=== PATIENT | female | born 1960 | race Caucasian/White ===

== ENCOUNTER 2020-06-09 08:52 | Outpatient (CLI) | payer OTHER, SELFPAY ==
--- NOTE | ~2020-06-09 | MM_ITS ---
EXAMINATION: MM screening [facility] BI w danielito HISTORY: Screening mammogram TECHNIQUE: Craniocaudal and mediolateral oblique 3-D tomosynthesis images were obtained and synthetic 2-D images were generated. CAD analysis was submitted and interpreted. COMPARISON: 04/24/2019, 04/10/2018, 04/09/2017 BREAST PARENCHYMAL COMPOSITION: There are scattered areas of fibroglandular density. FINDINGS: There is no evidence of suspicious mass, calcification, or architectural distortion to sugg est malignancy in either breast. There has been no suspicious interval change. IMPRESSION: 1. No mammographic evidence of malignancy. 2. Recommend routine screening mammography in one year. BI-RADS Category 1: Negative Reviewed, dictated and finalized at location A.
== END 2020-06-09 08:53 | disposition home or self-care (01) ==
PROVIDERS: PCP Student in an Organized Health Care Education/Training Program; Visit Provider Student in an Organized Health Care Education/Training Program
DX: Z12.31 Encounter for screening mammogram for malignant neoplasm of breast (principal)
CPT/HCPCS: 77063; 77067

== ENCOUNTER 2020-09-27 10:32 | Outpatient (CLI) | payer OTHER, SELFPAY ==
--- NOTE | ~2020-09-27 | DEXA_ITS ---
Bone Density Report Name: Joan Correa Age: 60 Sex: Female Ethnicity: White Date of : 1960 Indication: osteopenia; parental hip fracture; Referring Provider: SHIRAZ, PAVEL Study: Bone densitometry was performed. Exam Date: September 27, 2020 Accession number: [id number] Bone Density: Region BMD T-score Z-score Classification AP Spine (L1-L4) 0.799 -2.3 -0.7 Osteopenia Femoral Neck (Left) 0.591 -2.3 -0.9 Osteopenia Total Hip (Left) 0.762 -1.5 -0.4 Osteopenia Total Hip Bilateral Avg 0.764 -1.5 -0.4 Osteopenia Femoral Neck (Right) 0.588 -2.4 -1.0 Osteopenia Total Hip (Right) 0.765 -1.4 -0.4 Osteopenia World Health Organization criteria for BMD impression classify patients as: Normal (T-score at or above -1.0), Osteopenia (T-score between -1.0 and -2.5), or Osteoporosis (T-score at or below -2.5). 10-year Fracture Risk(1): Major Osteoporotic Fracture 21% Hip Fracture 2.1% Reported Risk Factors: [place] (), Neck BMD=0.588, BMI=24.4, parental fracture (1) FRAX(R) Version 3.08. Fracture probability calculated for an untreated patient. Fracture probability may be lower if the patient has received treatment. Previous Exams: Region Exam Age BMD T-score BMD Change BMD Change Date g/cm2 vs Baseline vs Previous AP Spine(L1-L4) 09/27/2020 60 0.799 -2.3 -0.120(-13.1%) -0.120(-13.1%) 04/12/2011 50 0.919 -1.2 Total Hip(Left) 09/27/2020 60 0.762 -1.5 -0.072(-8.7%)# -0.072(-8.7%)# 04/12/2011 50 0.834 -0.9 Total Hip(Right) 09/27/2020 60 0.765 -1.4 -0.063(-7.6%)# -0.063(-7.6%)# 04/12/2011 50 0.828 -0.9 *Denotes significance at 95% confidence level, LSC for AP Spine = 0.022 g/cm2, LSC for Total Hip = 0.027 g/cm2 Clinical Information Provided by Patient: Parent has had a hip fracture Has used the following medications: Vitamin D Patient maximum height was 69 Menopause Age: 48 No regular weight bearing exercise Drinks caffeinated beverages Onset of menses at age 10 Number of children 2 Impression: The patient has low bone mass, based on the Right Femoral Neck T-score. The patient has an estimated ten-year risk of hip fracture of 2.1% and an estimated ten-year risk of major fracture of 21%, based on the WHO FRAX algorithm. The patient has risk factors, including: parental hip fracture. No significant bone loss was observed. Discussion: BONE DENSITY IS LOW AT ONE OR MORE SKELETAL SITES. THE PATIENT'S BMD AND CLINI
== END 2020-09-27 10:33 | disposition home or self-care (01) ==
LOC: ANHIMG 10:35
PROVIDERS: PCP Student in an Organized Health Care Education/Training Program; Visit Provider Nurse Practitioner
DX: Z13.820 Encounter for screening for osteoporosis (principal); Z78.0 Asymptomatic menopausal state; M85.88 Other specified disorders of bone density and structure, other site; M85.852 Other specified disorders of bone density and structure, left thigh; M85.851 Other specified disorders of bone density and structure, right thigh
CPT/HCPCS: 77080

== ENCOUNTER 2021-07-01 07:49 | Outpatient (CLI) | payer OTHER, SELFPAY ==
--- NOTE | ~2021-07-01 | MM_ITS ---
EXAMINATION: MM screening [facility] BI w danielito HISTORY: Screening TECHNIQUE: Craniocaudal and mediolateral oblique 3-D tomosynthesis images were obtained and synthetic 2-D images were generated. CAD analysis was submitted and interpreted. COMPARISON: Comparison to multiple prior studies sequentially, with oldest reviewed study dated 04/09. BREAST PARENCHYMAL COMPOSITION: There are scattered areas of fibroglandular density. FINDINGS: There is no evidence of suspicious mass, calcification, or architectural distortion to sugg est malignancy in either breast. There has been no suspicious interval change. IMPRESSION: 1. No mammographic evidence of malignancy. 2. Recommend routine screening mammography in one year. BI-RADS Category 1: Negative Reviewed, dictated and finalized at location A.
== END 2021-07-01 07:50 | disposition home or self-care (01) ==
LOC: ANHIMG 07:53
PROVIDERS: PCP Student in an Organized Health Care Education/Training Program; Visit Provider Nurse Practitioner
DX: Z12.31 Encounter for screening mammogram for malignant neoplasm of breast (principal)
CPT/HCPCS: 77063; 77067

== ENCOUNTER 2022-07-08 08:58 | Outpatient (CLI) | payer OTHER, SELFPAY ==
--- NOTE | ~2022-07-08 | MM_ITS ---
EXAMINATION: MM screening [facility] BI w danielito HISTORY: Screening mammogram TECHNIQUE: Craniocaudal and mediolateral oblique 3-D tomosynthesis images were obtained and synthetic 2-D images were generated. CAD analysis was submitted and interpreted. COMPARISON: 07/01/2021, 06/09/2020, 04/24/2019 BREAST PARENCHYMAL COMPOSITION: The breasts are heterogeneously dense, which may obscure small masses . FINDINGS: There is no suspicious mass, calcification, or architectural distortion to suggest malignan cy in either breast. There has been no suspicious interval change. IMPRESSION: 1. No mammographic evidence of malignancy. 2. Recommend routine screening mammography in one year. BI-RADS Category 1: Negative Reviewed, dictated and finalized at location A.
== END 2022-07-08 08:59 | disposition home or self-care (01) ==
PROVIDERS: PCP Student in an Organized Health Care Education/Training Program; Visit Provider Nurse Practitioner
DX: Z12.31 Encounter for screening mammogram for malignant neoplasm of breast (principal)
CPT/HCPCS: 77063; 77067

== ENCOUNTER 2022-09-27 10:10 | Outpatient (CLI) | payer OTHER, SELFPAY ==
--- NOTE | ~2022-09-27 | DEXA_ITS ---
Bone Density Report Name: ADA JIM Age: 62 Sex: Female Ethnicity: White Date of : 1960 Indication: postmenopausal; screening for osteoporosis; Referring Provider: SHIRAZ, PAVEL Study: Bone densitometry was performed. Exam Date: September 27, 2022 Accession number: [id number] Bone Density: Region BMD T-score Z-score Classification AP Spine(L1-L4) 0.781 -2.4 -0.7 Osteopenia Femoral Neck (Left) 0.610 -2.2 -0.7 Osteopenia Total Hip (Left) 0.754 -1.5 -0.4 Osteopenia Femoral Neck (Right) 0.613 -2.1 -0.7 Osteopenia Total Hip (Right) 0.764 -1.5 -0.3 Osteopenia Total Hip Mean 0.759 -1.5 -0.4 Osteopenia World Health Organization criteria for BMD impression classify patients as: Normal (T-score at or above -1.0), Osteopenia (T-score between -1.0 and -2.5), or Osteoporosis (T-score at or below -2.5). 10-year Fracture Risk(1): Major Osteoporotic Fracture 10% Hip Fracture 1.7% Reported Risk Factors: [place] (), Neck BMD=0.610, BMI=22.5 (1) FRAX(R) Version 3.08. Fracture probability calculated for an untreated patient. Fracture probability may be lower if the patient has received treatment. Clinical Information Provided by Patient: Has used the following medications: Vitamin D Patient maximum height was 69 Menopause Age: 48 No regular weight bearing exercise Drinks caffeinated beverages Onset of menses at age 10 Number of children 2 Impression: The patient has low bone mass, based on the Total Spine T-score. The patient has an estimated ten-year risk of hip fracture of 1.7% and an estimated ten-year risk of major fracture of 10%, based on the WHO FRAX algorithm. Discussion: BONE DENSITY IS LOW AT ONE OR MORE SKELETAL SITES. This patient's lowest T-score is low at one or more skeletal sites. It meets the World Health Organization's (WHO) criteria for ?low bone mass? (T-score between -1.0 and -2.5). The patient's 10-year risk of fracture as calculated by FRAX is less than the threshold where pharmacological therapy is recommended by the National Osteoporosis Foundation (NOF). However, all treatment decisions require clinical judgment and consideration of individual patient factors, including patient preferences, comorbidities, previous drug use, risk factors not captured in the FRAX model (e.g., frailty, falls, vitamin D deficiency, increased bone turnover, interval significant decline in bone density) and possible under or overestimation of fracture risk by FRAX. The patient should follow a healthful lifestyle (good nutrition with adequate calcium and vitamin D, and appropriate weight-bearing exercise). Follow-Up: Consider repeating this study in 2 to 3 years to reassess this patient's status, or sooner if there is some new clinical indication. Reported by: Fernando
== END 2022-09-27 10:11 | disposition home or self-care (01) ==
LOC: ANHIMG 10:13
PROVIDERS: PCP Student in an Organized Health Care Education/Training Program; Visit Provider Nurse Practitioner
DX: M85.88 Other specified disorders of bone density and structure, other site (principal); Z78.0 Asymptomatic menopausal state; M85.852 Other specified disorders of bone density and structure, left thigh; M85.851 Other specified disorders of bone density and structure, right thigh
CPT/HCPCS: 77080

== ENCOUNTER 2023-10-07 10:42 | Emergency (ER) | payer MEDICARE, SELFPAY ==
[2023-10-07 10:55] VITALS: BP 113/77; PULSE 81; RESP 16; TEMP 37.4; O2SAT 100
[2023-10-07 10:59] VITALS: BP 113/77; PULSE 81; RESP 16; TEMP 37.4; O2SAT 100
--- NOTE | 2023-10-07 11:54 | ED.SKABFB ---
HPI - Skin/Abscess/Foreign Bdy General Chief complaint: Skin/Abscess/Foreign Body Stated complaint: Rash Time Seen by Provider: 10/07/23 11:48 Source: patient and RN notes reviewed Mode of arrival: ambulatory Limitations: no limitations History of Present Illness HPI narrative: Patient presents today complaining of a small rash just above her left eyebrow that has been present since last night and causes a burning pain. Believe she may have shingles. Currently rates her pain 2/10. She has not tried any [id number] medication for symptoms prior to arrival. She has been vaccinated for shingles. No vision changes at this time. She does have an eye doctor. Related Data Home Medications Medication Instructions Recorded Confirmed ergocalciferol (vitamin D2) 1,250 10/07/23 mcg (50,000 unit) capsule famotidine 20 mg tablet mg 10/07/23 fluticasone propionate 50 1 spray intranasal DAILY 10/07/23 10/07/23 mcg/actuation nasal spray,suspension ibandronate 150 mg tablet mg PO 10/07/23 ibuprofen 200 mg tablet 200 mg PO Q6H 10/07/23 10/07/23 losartan 50 mg tablet mg 10/07/23 Allergies Allergy/AdvReac Type Severity Reaction Status Date / Time No Known Allergies Allergy Verified 10/07/23 10:57 Review of Systems Review of Systems: CONSTITUTIONAL: Denies body aches, fever, chills, or sweats. EYES: Denies visual changes, redness, or discharge. ENT: Denies rhinorrhea, congestion, sore throat, or otalgia. CARDIOVASCULAR: Denies chest pain, palpitations, or edema. RESPIRATORY: Denies cough or dyspnea. GASTROINTESTINAL: Denies abdominal pain, nausea, vomiting, or diarrhea. GENITOURINARY: Denies dysuria or hematuria. SKIN: + rash MUSCULOSKELETAL: Denies back pain, joint pain, or myalgia. NEUROLOGIC: Denies headache, numbness, tingling, or weakness. PSYCH: Denies depression or anxiety. PMFSH Comments At time of signature, I have reviewed and agree with nursing past medical, surgical, social and family history unless otherwise noted. Please see nursing chart for further information. There is no relevant family history pertinent to the presenting complaint Exam Narrative: GENERAL: Well-appearing, well-nourished, and in no acute distress. HEAD: Normocephalic, atraumatic. EYES: EOMI. No redness or drainage. Conjunctivae normal. ENT: Mucous membranes pink and moist. NECK: Normal AROM. CHEST: No respiratory distress. EXTREMITIES: Normal range of motion. No edema. SKIN: Warm, dry. Capillary refill normal. Normal skin turgor. 1 x 1 cm area of erythema with tiny pinpoint vesicles just above the left eyebrow. NEURO: No focal deficits. Alert and oriented x3. Gait steady. PSYCH: Normal affect. No signs of depression or anxiety. Course Course Level of Care: Express Care Visit Vital Signs Vital signs: Vital Signs Temperature 99.3 F 10/07/23 10:55 Pulse Rate 81 10/07/23 10:55 Respiratory Rate 16 10/07/23 10:55 Blood Pressure 113/77 10/07/23 10:55 Pulse Oximetry 100 10/07/23 10:55 Oxygen Delivery Room Air 10/07/23 10:55 Temperature 99.3 F 10/07/23 10:59 Pulse Rate 81 10/07/23 10:59 Respiratory Rate 16 10/07/23 10:59 Blood Pressure 113/77 10/07/23 10:59 Pulse Oximetry 100 10/07/23 10:59 Oxygen Delivery Room Air 10/07/23 10:59 Reviewed MDM - Skin/Abscess/Foreign Bdy MDM Narrative Medical decision making narrative: Exam consistent with shingles. Patient will be started on valacyclovir. She has also been instructed to call her eye doctor today to schedule a follow-up appointment. Anticipatory guidance given. Differential Diagnosis Differential diagnosis: Likely abscess of skin or subcutaneous tissue, dermatophytosis, herpes zoster, cellulitis, eczema, impetigo and contact dermatitis Critical Care Time Critical Care Time Critical Care Time: No Discharge Plan Discharge Clinical Impression: Shingles Qualifiers: Herpes zoster complications: with
== END 2023-10-07 12:06 | disposition home or self-care (01) ==
PROVIDERS: Emergency Provider Nurse Practitioner; PCP Student in an Organized Health Care Education/Training Program
DX: B02.9 Zoster without complications (principal); Z79.899 Other long term (current) drug therapy; Z79.1 Long term (current) use of non-steroidal anti-inflammatories (NSAID)
CPT/HCPCS: 99213; G0463

== ENCOUNTER 2023-11-07 07:49 | Outpatient (CLI) | payer MEDICARE, SELFPAY ==
--- NOTE | ~2023-11-07 | MM_ITS ---
EXAMINATION: MM screening [facility] BI w danielito HISTORY: Screening mammogram TECHNIQUE: Craniocaudal and mediolateral oblique 3-D tomosynthesis images were obtained and synthetic 2-D images were generated. CAD analysis was submitted and interpreted. COMPARISON: 07/08/2022, 07/01/2021, 06/09/2020 BREAST PARENCHYMAL COMPOSITION: There are scattered areas of fibroglandular density. FINDINGS: No suspicious mass, calcification, or architectural distortion are identified in either otf ast to suggest malignancy. There has been no suspicious interval change. IMPRESSION: 1. No mammographic evidence of malignancy. 2. Recommend routine screening mammography in one year. BI-RADS Category 1: Negative Reviewed, dictated and finalized at location A. PING CHECKER
== END 2023-11-07 07:50 | disposition home or self-care (01) ==
PROVIDERS: PCP Student in an Organized Health Care Education/Training Program; Visit Provider Nurse Practitioner
DX: Z12.31 Encounter for screening mammogram for malignant neoplasm of breast (principal)
CPT/HCPCS: 77063; 77067

== ENCOUNTER 2024-12-14 08:56 | Outpatient (CLI) | payer MEDICARE, SELFPAY | END 2024-12-14 08:57 | disposition home or self-care (01) | LOC: ANHIMG 08:58 | PROVIDERS: PCP Student in an Organized Health Care Education/Training Program; Visit Provider Nurse Practitioner | DX: Z12.31 Encounter for screening mammogram for malignant neoplasm of breast (principal) | CPT/HCPCS: 77063; 77067 ==

== ENCOUNTER 2025-02-05 15:02 | Outpatient (CLI) | payer MEDICARE, SELFPAY ==
--- NOTE | ~2025-02-05 | DEXA_ITS ---
Bone Density Report Name: ADA JIM Age: 64 Sex: Female Ethnicity: White Date of : 1960 Indication: osteopenia; parental hip fracture; height loss; Referring Provider: SHIRAZ, PAVEL Study: Bone densitometry was performed. Exam Date: February 05, 2025 Accession number: [id number] Bone Density: Region BMD T-score Z-score Classification AP Spine(L1-L4) 0.857 -1.7 0.1 Osteopenia Femoral Neck (Left) 0.626 -2.0 -0.4 Osteopenia Total Hip (Left) 0.792 -1.2 0.1 Osteopenia Femoral Neck (Right) 0.613 -2.1 -0.5 Osteopenia Total Hip (Right) 0.785 -1.3 0.0 Osteopenia Total Hip Mean 0.788 -1.3 0.1 Osteopenia World Health Organization criteria for BMD impression classify patients as: Normal (T-score at or above -1.0), Osteopenia (T-score between -1.0 and -2.5), or Osteoporosis (T-score at or below -2.5). 10-year Fracture Risk(1): Major Osteoporotic Fracture 19% Hip Fracture 2.4% Reported Risk Factors: [place] (), Neck BMD=0.613, BMI=22.8, parental fracture (1) FRAX(R) Version 3.08. Fracture probability calculated for an untreated patient. Fracture probability may be lower if the patient has received treatment. Previous Exams: Region Exam Age BMD T-score BMD Change BMD Change Date g/cm2 vs Baseline vs Previous AP Spine (L1-L4) 02/05/2025 64 0.857 -1.7 0.057 (7.2%)* 0.076 (9.7%)* 09/27/2022 62 0.781 -2.4 -0.018 (-2.3%) -0.018 (-2.3%) 09/27/2020 60 0.799 -2.3 Total Hip(Left) 02/05/2025 64 0.792 -1.2 0.030 (4.0%)* 0.038 (5.0%)* 09/27/2022 62 0.754 -1.5 -0.008 (-1.0%) -0.008 (-1.0%) 09/27/2020 60 0.762 -1.5 Total Hip(Right) 02/05/2025 64 0.785 -1.3 0.019 (2.5%) 0.021 (2.7%) 09/27/2022 62 0.764 -1.5 -0.001 (-0.2%) -0.001 (-0.2%) 09/27/2020 60 0.765 -1.4 *Denotes significance at 95% confidence level, LSC for AP Spine = 0.022 g/cm2, LSC for Total Hip = 0.027 g/cm2 Clinical Information Provided by Patient: Parent has had a hip fracture Has used the following medications: Boniva (i.e. ibandronate), Vitamin D Patient maximum height was 69 Menopause Age: 48 No regular weight bearing exercise Drinks caffeinated beverages Onset of menses at age 10 Number of children 2 Impression: The patient has low bone mass, based on the Right Femoral Neck T-score. The patient has an estimated ten-year risk of hip fracture of 2.4% and an estimated ten-year risk of major fracture of 19%, based on the WHO FRAX algorithm. The patient has risk factors, including: parental hip fracture. No significant bone loss was observed. Discussion: BONE DENSITY IS LOW AT ONE OR MORE SKELETAL SITES. This patient's lowest T-score is low at one or more skeletal sites. It meets the World Health Organization's (WHO) criteria for ?low bone mass? (T-score between -1.0 and -2.5). The patient's 10-year risk of fracture as calculated by FRAX is less than the threshold where pharmacological therapy is recommended by the National Osteoporosis Foundation (NOF). However, all treatment decisions require clinical judgment and consideration of individual patient factors, including patient preferences, comorbidities, previous drug use, risk factors not captured in the FRAX model (e.g., frailty, falls, vitamin D deficiency, increased bone turnover, interval significant decline in bone density) and possible under or overestimation of fracture risk by FRAX. The patient should follow a healthful lifestyle (good nutrition with adequate calcium and vitamin D, and appropriate weight-bearing exercise). Follow-Up: Consider repeating this study in 2 to 3 years to reassess this patient's status, or sooner if there is some new clinical indication. Reported by: EMILEE on 02/05/2025 3:35:00 PM. Reviewed, dictated and finalized at location [facility]
--- OUTSIDE RECORDS SUMMARY | 2025-02-05 17:18 | XMS_ITS | Encounter Summary ---
Author Organization [facility] Address [address] [place] [address] Care Team Providers Care Technical Services Librarian Name Role Phone Doug George DO Primary Care Provider + Encounter Details Date Type Department Care Team (Latest Contact Info) Description 09/08/2021 [employer] Message Enc [facility] Family & Internal Medicine [facility] [address] [place] [address] Doug George DO [address] [place] [address] Question regarding COMPREHENSIVE METABOLIC PANEL Social History Tobacco Use Types Packs/Day Years Used Date Smoking Tobacco: Never Smokeless Tobacco: Never Alcohol Use Standard Drinks/Week Comments Yes 0 (1 standard drink = 0.6 oz pur e alcohol) AUDIT-C Answer Date Recorded Frequency of Alcohol Consumption 2-4 times a tue09/06/2018 Average Number of Drinks 1 or 2 018 Frequency of Binge Drinking Not on file 08/18 PHQ-2 Answer Date Recorded PHQ-2 Score - If the patient scores above 3, please move on to questions 3-9 0 07/28/2021 Education Answer Date Recorded What is the highest level of school you have completed or the highest degree you have received? 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 No / Unsure 09/07/2021 8:49 AM LOT ATTENDANT documented as of this encounter Progress Notes * Doug George DO - 09/09/2021 10:38 AM CST Nothing to worry about, we'll just keep following it. ATTENDANT * Doug George DO - 09/08/2021 4:05 PM CST See lab result note. ATTENDANT documented in this encounter Plan of Treatment Upcoming Encounters Date Type Department Care Team (Late st Contact Info) Description 04/24/2025 9:00 AM CDT Office Visit [facility] Family & Internal Medicine - [address] [address] Doug George DO [address] [place] [address] documented as of this encounter Visit Diagnoses Not on filedocumented in this encounter Additional Health Concerns Assessment Noted Time PHQ-9 Depression Total Score: 0 07/28/20 21 9:12 AM CDT documented as of this encounter Care Teams Technical Services Librarian Relationship Specialty Start Date End Date Doug George DO [address] [place] [id number] PCP - General FAMILY PRACTICE 09/06/18 documented as of this encounter
--- OUTSIDE RECORDS SUMMARY | 2025-02-05 17:18 | XMS_ITS | Clinical Summary ---
Author Organization [facility] Care Team Providers Care Monument Stonecutter Name Role Phone Unavailable Primary Care Provider Unavailabl e Social History Tobacco Use Types Packs/Day Years Used Date Smoking Tobacco: Never Assessed Comments Unknown Sex and Gender Information Value Date Recorded Sex Assigned at Not on file Legal Sex Female 10:40 AM CDT Gender Identity Not on file Sexual Orientation Not on file Plan of Treatment Health Maintenance Due Date Last Done Comments DEXA Bone Density 1960 Hepatitis C Virus (HCV) Screening 1960 Pap Smear 1979 Cervical Cancer Screening (CCS) 1988 HPV/Cotest 1988 Colonoscopy 2003 Colorectal Cancer Screening 2003 Cologuard 2008 Immunochemical Fecal Occult Blood 2008 Mammogram 2008 Pneumococcal Immunization (5 0+ years) (1 of 1 - PCV) 2008 Influenza Immunization (#1) 06/17/202404/2020, 07/29/2019 SARS-COV-2 Immunization ( season) 2024 12/05/2020, 11/14/2020 Respiratory Syncytial Virus (RSV) Immunization (Adult) (1 - 1-dose 75+ series) 2033 DTaP/Tdap/Td Immunization Discontinued 03/15/2019 TdaP Immunization Completed 03/15/2019 Zoster Immunization Completed 01/01/2020, 09/21/2019 Hepatitis B Immunization Aged Out No longer eligible based on patient's age to complete this topic Meningococcal Immunization (ACWY) Aged Out No longer eligible based on patient's age to complete this topic Rotavirus Immunization Aged Out No lo nger eligible based on patient's age to complete this topic
--- OUTSIDE RECORDS SUMMARY | 2025-02-05 17:18 | XMS_ITS | Continuity of Care Document ---
Author Organization [facility] Address [address] [place] [address] Phone Care Team Providers Care Floor Grinder Name Role Phone Abe Hope Unavailable Unavailable Procedures Procedure Date Therapeutic Activities Neuromuscular Re-Ed Therapeutic Exercise Hot or Cold Pack Therapeutic Activities Neuromuscular Re-Ed Therapeutic Exercise Hot or Cold Pack Therapeutic Activities Therapeutic Exercise Neuromuscular Re-Ed Hot or Cold Pack Therapeutic Activities Neuromuscular Re-Ed Therapeutic Exercise Hot or Cold Pack PT Evaluation Moderate Complexity Neuromuscular Re-Ed Manual Therapy Advance Directives Directive Yes / No Effective Date File Name No Information Encounters Encounter Description Practice Location Reason(s) For Visit Diagnoses Date Provider Providers Copied on Encounter [facility], [address], [id number], tel:[phone] [place] No Information [address] [address] [facility], [facility] [address], [place], [address], . tel: [phone] Referring Provider: Doug George , [address] [place], [address]. tel:[phone] [facility], [id number], tel:[phone] [place] No Information Sep- 7 9 Muehl Abe. [address] [place] [address], . tel: [phone] Referring Provider: Doug George , [address] [place] [address], [facility]. tel:[phone], [id number], tel:[phone] [place] No Information Sep- 3201 9 Muehl Abe. [address] [place] [address], . tel: [phone] Referring Provider: Doug George , [address] [place] [address], [facility]. tel:[phone], [id number], tel:[phone] [place] No Information Sep-2 0201 9 Muehl Abe. [address] [place] [address], . tel: [phone] Referring Provider: Doug George , [address] [place] [address], [facility]. tel:[phone], [id number], tel:[phone] [place] No Information Sep- 6 9 Muehl Abe. [address] [place] [address], . tel: [phone] Referring Provider: Doug George , [address] [place] [address], [facility]. tel:[phone] Family History Family Member Type Diagnosis Age At Onset No Information Payers Payer name Insurance type Covered alliance party ID Eladioa maday(s) [facility] [id number] Social History Type Description Quantity Date Captured Comments Sex Female Smoking Status No Information Chief Complaint And Reason For Visit No Information Reason For Referral Reason For Referral No Information History Of Present Illness Encounter Date Complaint History Of Prese nt Illness No Information Functional Status Date Functional Assessmen t No Information Instructions Date Instruction Additional Infor mation No Information Assessments Type Assessment Date No Information Patient Care Teams Name Effective Dates (start - stop) Status Members No Information
--- OUTSIDE RECORDS SUMMARY | 2025-02-05 17:18 | XMS_ITS | CONTINUITY OF CARE DOCUMENT ---
Author Name richy lockhart Address Unknown Organization [facility] Address [address] [place] [address] [address] [place] [address] Phone [phone] Care Team Providers Care Contact Center Analyst Name Role Phone OFE CURIEL MD Unavailable [phone] OFE CURIEL MD Unavailable [phone] INSURANCE PROVIDERS Payer name Policy type / Coverage type Cruger red libertarian ID [facility] Other [id number]
--- OUTSIDE RECORDS SUMMARY | 2025-02-05 17:18 | XMS_ITS | Encounter Summary ---
Author Organization [facility] Address [address] [place] [address] Care Team Providers Care Grounds Crew Supervisor Name Role Phone Doug George DO Primary Care Provider + Encounter Details Date Type Department Care Team (Late st Contact Info) Description 05/30/2023 [employer] Message Enc [facility] Medical Group Family & Internal Medicine [facility] [address] [place] [address] Doug George DO [address] [place] [address] Question regarding URINALYSIS WI REFLEX TO CULTURE Social History Tobacco Use Types Packs/Day Years Used Date Smoking Tobacco: Never Cigarettes Passive Smoke Exposure: Past Smokeless Tobacco: Never Comments:Around who smoked Alcohol Use Standard Drinks/Week Comments Yes 0 (1 standard drink = 0.6 oz pur e alcohol) Varies, 1x a week AUDIT-C Answer Date Recorded Frequency of Alcohol Consumption 2-4 times a tue09/06/2018 Average Number of Drinks 1 or 2 018 Frequency of Binge Drinking Not on file 08/18 PHQ-2 Answer Date Recorded Patient Health Questionnaire-2 Score 0 05/26/2023 Education Answer Date Recorded What is the highest level of school you have completed or the highest degree you have received? 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 Not on file documented as of this encounter Plan of Treatment Upcoming Encounters Date Type Department Care Team (Late st Contact Info) Description 04/24/2025 9:00 AM CDT Office Visit [facility] Medical Group Family & Internal Medicine - [place] [address] [place] [address] Doug George DO [address] [place] [address] documented as of this encounter Visit Diagnoses Not on filedocumented in this encounter Additional Health Concerns Assessment Noted Time PHQ-9 Depression Total Score: 0 10/28/19 22 2:56 PM CLIENT SERVICE AND CONSULTING MANAGER documented as of this encounter Care Teams Grounds Crew Supervisor Relationship Specialty Start Date End Date Doug George DO [address] [place] [address] PCP - General FAMILY PRACTICE 09/06/18 documented as of this encounter
--- OUTSIDE RECORDS SUMMARY | 2025-02-05 17:18 | XMS_ITS | Encounter Summary ---
Author Organization [facility] Address [address] [place] [address] Care Team Providers Care Acoustical Installer Name Role Phone Doug George DO Primary Care Provider + Encounter Details Date Type Department Care Team (Late st Contact Info) Description 06/06/2023 ZAPRt Message Enc [facility] Medical Group Family & Internal Medicine [facility] [address] [place] [address] Doug George DO [address] [place] [address] Back pain Social History Tobacco Use Types Packs/Day Years [...] Sex Assigned at Female 09/24/2024 9:55 AM TREE SHEAR OPERATOR Legal Sex Female 1:49 PM TREE SHEAR OPERATOR Gender Identity Female 09/24/2024 9:55 AM TREE SHEAR OPERATOR Sexual Orientation Not on file 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 documented in this encounter Plan of Treatment Upcoming Encounters Date Type Department Care Team (Late st Contact Info) Description 04/24/2025 9:00 AM CDT Office Visit [facility] Medical [facility] Family & Internal Medicine [address] [address] Doug George DO [facility] [place] [address] documented as of this encounter Visit Diagnoses Not on filedocumented in this encounter Additional Health Concerns Assessment Noted Time PHQ-9 Depression Total Score: 0 10/28/19 2:56 PM TREE SHEAR OPERATOR documented as of this encounter Care Teams Acoustical Installer Relationship Specialty Start Date End Date Doug George DO [address] [place] [address] PCP - General FAMILY PRACTICE 09/06/18 documented as of this encounter
--- OUTSIDE RECORDS SUMMARY | 2025-02-05 17:18 | XMS_ITS | Encounter Summary ---
Author Organization [facility] Address [address] [place] [address] Care Team Providers Care As400 Programmer Name Role Phone Doug George DO Primary Care Provider + Encounter Details Date Type Department Care Team (Late st Contact Info) Description 10/20/2021 Design2Launcht Message Enc [facility] Medical Group Family & Internal Medicine [facility] [address] [place] [address] Doug George DO [address] [place] [address] Back pain Social History Tobacco [...] Sex Assigned at Female 09/24/2024 9:55 AM BARBER APPRENTICE Legal Sex Female 1:49 PM BARBER APPRENTICE Gender Identity Female 09/24/2024 9:55 AM BARBER APPRENTICE Sexual Orientation Not on file 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 We can do XR at that time. ER APPRENTICE documented in this encounter Plan of Treatment Upcoming Encounters Date Type Department Care Team (Late st Contact Info) Description 04/24/2025 9:00 AM CDT Office Visit [facility] Medical Group Family & Internal Medicine - [address] [address] Doug George DO [address] [place] [address] documented as of this encounter Visit Diagnoses Not on filedocumented in this encounter Additional Health Concerns Assessment Noted Time PHQ-9 Depression Total Score: 0 07/28/20 21 9:12 AM CDT documented as of this encounter Care Teams As400 Programmer Relationship Specialty Start Date End Date Doug George DO [address] [place] [address] PCP - General FAMILY PRACTICE 09/06/18 documented as of this encounter
--- OUTSIDE RECORDS SUMMARY | 2025-02-05 17:18 | XMS_ITS | Encounter Summary ---
Author Organization [facility] Address [address] [place] [address] Care Team Providers Care Rental Manager Name Role Phone Doug George DO Primary Care Provider + Encounter Details Date Type Department Care Team (Late st Contact Info) Description 01/30/2022 TaDawebt Message Enc [facility] Family & Internal Medicine [facility] [address] [place] [address] Doug George DO [address] [place] [address] Med refill Social History Tobacco Use Types Packs/Day Years Used Date Smoking Tobacco: Passive Smo ke Exposure - Never Smoker Cigarettes Smokeless Tobacco: Never Alcohol Use Standard Drinks/Week [...] please move on to questions 3-9 0 10/28/2021 Education Answer Date Recorded What is the highest level of school you have completed or the highest degree you have received? 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 on file documented as of this encounter Plan of Treatment Upcoming Encounters Date Type Department Care Team (Late st Contact Info) Description 04/24/2025 9:00 AM CDT Office Visit [facility] Family & Internal Medicine - [place] [address] [place] [address] Doug George DO [address] [place] [address] documented as of this encounter Visit Diagnoses Not on filedocumented in this encounter Additional Health Concerns Assessment Noted Time PHQ-9 Depression Total Score: 0 10/28/19 22 2:56 PM DENTAL INTERN documented as of this encounter Care Teams Rental Manager Relationship Specialty Start Date End Date Doug George DO [address] [place] [address] PCP - General FAMILY PRACTICE 09/06/18 documented as of this encounter
--- OUTSIDE RECORDS SUMMARY | 2025-02-05 17:18 | XMS_ITS | Clinical Summary ---
Author Organization [facility] Address [address] [place] [address] Care Team Providers Care Typing Teacher Name Role Phone Doug George DO Primary Care Provider + Allergies Active Allergy Reactions Criticality Noted Date Comments Amoxicillin-Pot Clavulanate Joint Pain 03/17/20 22 Unsure if was connected or not Medications ibandronate 150 MG tablet 1 tablet (150 mg total) every 30 (thirty) days. Active vitamin D2, ergocalciferol, 98521 UNITS capsule Take 1 capsule (50,000 Units total) by mouth every 14 (fourteen) days. Active losartan (COZAAR) 50 MG tabletIndications :Primary hypertension TAKE 1 TABLET BY MOUTH EVERY DAY 90 tablet 1 4 Active omeprazole (PRILOSEC) 20 MG capsuleIndication s:Gastroesophagea l reflux disease without esophagitis Take 1 capsule (20 mg total) by mouth daily. 90 capsule 1 4 Active Active Problems Problem Noted Date Diagnosed Date Osteopenia of multiple sites 06/25/2024 Essential hypertension 06/11/2020 Hyperlipidemia, unspecified hyperlipidemia type 06/11/2020 BMI 24.0-24.9, adult 07/02/2019 Vitamin D deficiency 07/20/2017 Gastroesophageal reflux disease without esophagi tis 04/06/2016 History of Helicobacter pylori infection 016 Left-sided tinnitus 04/06/2016 Resolved Problems Problem Noted Date Diagnosed Date Resolved Date Herpes zoster 06/25/2024 06/25/2024 Encounters Date Type Department Care Team Description 12/14/2024 Scan [facility] SRV[facility] Scanned, Doc [facility] Mammogram (SCAN) 11/21/2024 12:00 PM GLUE MAKER Office Visit [facility] Internal Medicine [address] [address] Doug George, DO UTI (Fullness, frequency, and pressure for 4-5 days ) 11/21/2024 - 11/21/2024 11:59 PM GLUE MAKER Hospital En[facility] [address] [place] [address] Doug George, DO Discharge Disposition: Home or Self Care (Routine Discharge) 11/21/2024 Travel 11/20/2024 Telephone [facility] Family & Internal [address] [phone] Doug George, DO Advice from Last 3 Months Immunizations Immunization Administration Dates Next Due Arexvy Respiratory Syncytial Virus (RSV, adjuvanted) 0.5 mL, PF 07/28/2023 Fluzone 6 Months+ Quad (0.5 mL Prefilled Syringe ) 07/23/2020 Fluzone High Dose - >Age 65 (Prefilled Syringe) 07/23/2024,07/28/2023 Influenza (Generic) 08/01/2022,07/12/2021 Influenza Adult (Generic) 07/29/2019 MODERNA COVID-19 BIVALENT (12+), MRNA, LNP-S, PF 08/01/2022 Pneumococcal (Prevnar 20) 06/08/2023 Shingrix 01/01/2020,09/21/2019 Tdap (Boostrix) 03/15/2019 Family History Medical History Relation Comments Alzheimers's Disease Father Diabetes Father Parkinson's Disease Father Early Hearing Loss Maternal Grandfather Arthritis Maternal Grandmother Hypertension Maternal Grandmother Heart Disease Maternal Uncle 1 Early Maternal Uncle 2 Cancer Mother Parkinson's Disease Mother TB Mother Vision loss Mother Macular degenera tion Mental Health Paternal Aunt Bi-polar Alcohol Abuse Paternal Grandfather ALS Paternal Grandmother Relation Status Comments Father Maternal Grandfather Maternal Grandmother Maternal Uncle 1 Maternal Uncle 2 Mother Paternal Aunt Paternal Grandfather Paternal Grandmother Social History Tobacco Use Types Packs/Day Years Used Date Smoking Tobacco: Never Cigarettes Passive Smoke Exposure: Past Smokeless Tobacco: Never Comments:Around who smoked Alcohol Use Standard Drinks/Week Comments Yes 3.3 (1 standard drink = 0.6 oz p ure alcohol) Varies, 1x a week AUDIT-C Answer Date Recorded Frequency of Alcohol Consumption 2-4 times a tue09/06/2018 Average Number of Drinks 1 or 2 018 Frequency of Binge Drinking Not on file 08/18 PHQ-2 Answer Date Recorded Patient Health Questionnaire-2 Score 0 11/21/2024 Education Answer Date Recorded What is the highest level of school you have completed or the highest degree you have received? 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 file Last Filed Vital Signs Vital Sign Reading Time Taken Comments Blood Pressure 136/86 11/21/2024 12:06 PM GLUE MAKER Pulse 87 11/21/2024 12:06 PM GLUE MAKER Temperature 37 C (98.6 F) 11/21/2024 12:06 PM GLUE MAKER Respiratory Rate 16 11/21/2024 12:06 PM GLUE MAKER Oxygen Saturation 98% 11/21/2024 12:06 PM GLUE MAKER Inhaled Oxygen Concentration - - Weight 72.7 kg (160 lb 4.8 oz) 09/24/2024 9:55 A M GLUE MAKER Height 175.3 cm (5' 9 ) 11/21/2024 12:06 PM GLUE MAKER Body Mass Index 23.67 09/24/2024 9:55 AM GLUE MAKER Plan of Treatment Upcoming Encounters Date Type Department Care Team (Late st Contact Info) Description 04/24/2025 9:00 AM CDT Office Visit [facility] Medical Group Family & Internal Medicine [address] [address] Doug George P, DO [address] [place] [address] Health Maintenance Due Date Last Done Comments Annual Medicare Wellness Visit 2023 COVID-19 Vaccine ( season) 2025 07/23/2024, 07/28/2023, 08/01/2022, Additional history exists Mammogram Screening 12/14/2025 12/14/2024, 11/07/2023, 07/08/2022, Additional history exists Colorectal Cancer Screening Colonoscopy (10 Years) 04/22/2026 04/22/2016 DTaP, Tdap and Td Vaccines (2 - Td or Tdap) 03/15/2029 03/15/2019 Hepatitis C Completed 03/27/2019 Zoster Vaccines Completed 01/01/2020, 09/21/2019 Dexa Scan (General) Completed 09/27/2022, 09/27/2020, 09/27/2020, Additional history exists Pneumococcal Vaccine: 50+ Years Completed 06/08/2023 RSV Immunization or 60+ Years Completed 07/28/2023 PHQ-2 (Physician [place]) Completed 11/21/2024 Meningococcal B Vaccine Aged Out No l onger eligible based on patient's age to complete this topic Meningococcal Vaccine Aged Out No alexus daniel eligible based on patient's age to complete this topic RSV Immunizations Under 20 Months Aged Out No longer eligible based on patient's age to complete this topic Procedures Procedure Name Priority Date/Time Associated Diagnosis Comments MAMMOGRAM GENERIC (SCAN ORDER) 12/14/2024 URINE BACTERIA CULTURE Routine 11/21/2024 12:15 PM GLUE MAKER Dysuria URINALYSIS AUTO DIP Routine 11/21/2024 Acute cystitis without hematuria BONE DENSITY GENERIC (SCAN ORDER) 09/27/2022 HEPATITIS C ANTIBODY Routine 03/27/2019 9:15 AM CDT Need for hepatitis C screening test COLONOSCOPY GENERIC (SCAN ORDER) 04/22/2016 from Last 3 Months or Most Recently Relevant to Health Maintenance Results * MAMMOGRAM GENERIC (SCAN ORDER) (12/14/2024) Anatomical Region Laterality Modality Other 12/14/2024 us Doc [facility] Scanned SCANNING Final Resu lt * URINE BACTERIA CULTURE (11/21/2024 12:15 PM GLUE MAKER) SPEC DESCRIPTION URINE CLEAN CATCH 11/21/2024 12:15 PM GLUE MAKER [facility] SPECIAL REQUESTS NO SPECIAL REQUEST 11/21/2024 12:15 PM GLUE MAKER [facility] CULTURE RESULT FEW CONTAMINANTS 04/2025 11:24 AM GLUE MAKER [facility] URINE SPECIMEN OBTAINED BY CLEAN CATCH PROCEDURE / Unknown 11/21/2024 12:15 PM GLUE MAKER 11/21/2024 9:10 PM GLUE MAKER Doug George DO MICROBIOLOGY - GENERAL O RDERABLES Final Result [facility] [address] [place] [address], [id number] * (ABNORMAL) URINALYSIS AUTO DIP (11/21/2024) COLOR (U) PALE YELLOW YELLOW [facility] TRANSPARENCY CLEAR CLEAR [facility] H [facility] GLUCOSE (U) NEGATIVE NEGATIVE MG/DL [facility] BILIRUBIN (U) NEGATIVE NEGATIVE [facility] KETONES MG/DL (U) NEGATIVE NEGATIVE MG/DL [facility] SPECIFIC GRAVITY (U) 1.010 1.001 - 1.035 [facility] BLOOD (U) NEGATIVE NEGATIVE [facility] U PH 7.0 5.0 - 9.0 [facility] PROTEIN (U) NEGATIVE NEGATIVE mg/dL [facility] UROBILINOGEN 0.2 0.2 - 1.0 EU/dL = mg/dL [facility] NITRITES NEGATIVE NEGATIVE MG/DL [facility] LEUKOCYTES (U) 1+ (SMALL)(A) NEGATIVE [facility] URINE SPECIMEN OBTAINED BY CLEAN CATCH PROCEDURE / Unknown 11/21/2024 us Doug George DO URINE ORDERABLES Final R esult Performing Organization Address [facility] Co de Phone Number [facility] [address] [place] [address], [place] * BONE DENSITY GENERIC (09/27/2022) Anatomical Region Laterality Modality Other 09/27/2022 us Doc [facility] Scanned SCANNING Final Resu lt * HEPATITIS C ANTIBODY (03/27/2019 9:15 AM CDT) Pathologist [facility] HEPATITIS C AB 0.1 0.0 - 0.9 s/co ratio [facility] 1 Comment: Negative: < 0.8 Indeterminate: 0.8 - 0.9 Positive: > 0.9 The CDC recommends that a positive HCV antibody result be followed up with a HCV Nucleic Acid Amplification test ([id number]). 03/27/2019 9:15 AM CDT 03/27/2019 Narrative [facility] - 03/28/2019 12:08 PM CDT Performed at: [facility] [id number] Reserves Clerk: Gurwinder Maguire PhD, Phone: [phone] us Doug George DO LABORATORY Final Re sult Performing Organization Address City/[facility] Co de Phone Number [facility] [address] [place] [address] [facility] 1 * COLONOSCOPY GENERIC (04/22/2016) 04/22/2016 Narrative 04/22/2016 Ordered by an unspecified provider. us Documents Scanned SCANNING Final Result from Last 3 Months or Most Recently Relevant to Health Maintenance Insurance [employer] Care Teams Typing Teacher Relationship Specialty Start Date End Date Doug George DO [address] [place] [address] [phone] PCP - General FAMILY PRACTICE 09/06/18
--- OUTSIDE RECORDS SUMMARY | 2025-02-05 17:18 | XMS_ITS | Clinical Summary ---
Author Organization [facility] Address [address] [place] [address] Phone Care Team Providers Care Plastics Fitter Name Role Phone Jose Staley DO Primary Care Provider Allergies No known active allergies Medications Cholecalciferol , Vitamin D3, 2,000 unit Capsule Take by mouth. Active omeprazole (PriLOSEC) 20 mg Capsule, Delayed Release(E.C.) Take 1 Capsule (20 mg) by mouth daily. 90 Capsule 1 08/02/2018 Active Active Problems Problem Noted Date Diagnosed Date Vitamin D deficiency 07/20/2017 Anxiety state 10/07/2016 Prehypertension 04/06/2016 Overweight (BMI 25.0-29.9) 04/06/2016 Left-sided tinnitus 04/06/2016 Gastroesophageal reflux disease without esophagi tis 04/06/2016 History of Helicobacter pylori infection 016 Chronic fatigue 04/06/2016 Resolved Problems Problem Noted Date Diagnosed Date Resolved Date Well adult exam 04/06/2016 10/07/2016 Acute allergic otitis media of both ears 04/06/2016 10/07/2016 Family History Medical History Relation Name Comments Diabetes Father Cancer Mother Relation Name Status Comments Daughter Alive Father Alive Mother Alive Social History Tobacco Use Types Packs/Day Years Used Date Smoking Tobacco: Never Smokeless Tobacco: Never Alcohol Use Standard Drinks/Week Comments Yes 2 (1 standard drink = 0.6 oz pur e alcohol) Comments No Sex and Gender Information Value Date Recorded Sex Assigned at Not on file Legal Sex Female 10:15 AM CDT Gender Identity Not on file Sexual Orientation Not on file Last Filed Vital Signs Vital Sign Reading Time Taken Comments Blood Pressure 121/73 04/17/2018 8:49 AM CDT Pulse 76 04/17/2018 8:49 AM CDT Temperature 36.2 C (97.1 F) 04/17/2018 8:49 AM CDT Respiratory Rate 18 04/17/2018 8:49 AM CDT Oxygen Saturation 96% 04/17/2018 8:49 AM CDT Inhaled Oxygen Concentration - - Weight 77.6 kg (171 lb) 04/17/2018 8:49 AM CDT Height 175.3 cm (5' 9 ) 04/17/2018 8:49 AM CDT Body Mass Index 25.25 04/17/2018 8:49 AM CDT Plan of Treatment Health Maintenance Due Date Last Done Comments DTAP/TDAP/TD VACCINES (1 - Tdap) 1977 FIT-DNA Q 3 years 2003 FIT/FOBT Q 1 year 2003 Flex Sig/CT Colonography Q 5 years 2003 PNEUMOCOCCAL VACCINE 50+ YEA RS (1 of 1 - PCV) 2008 ZOSTER VACCINE (1 of 2) 2008 BREAST CANCER SCREENING 04/10/2019 04/10/20 18, 04/10/2018, 04/09/2017, Additional history exists OSTEOPOROSIS SCREENING 2023 INFLUENZA VACCINE (#1) 2024 Preventative Visit- Commercial 10/17/2024 0 04/17/2018, 03/22/2017, 04/06/2016 COLORECTAL SCREENING 04/22/2026 04/22/2016 Colorectal Cancer Screening 04/22/2026 RSV VACCINE (60+ or ) (1 - 1-dose 75+ series) 2033 Procedures Procedure Name Priority Date/Time Associated Diagnosis Comments MAMMO SCREEN BILAT W OR WO CAD Routine 04/10/2018 ENDOSCOPY, COLON, SCREENING Routine 04/22/2016 from Last 3 Months or Most Recently Relevant to Health Maintenance Results * MAMMO SCREEN BILAT W OR WO CAD (04/10/2018) Anatomical Region Laterality Modality Breast Bilateral Mammography Lila NOWAK MAMMO ORDERABLES Edited Resu lt - Final * ENDOSCOPY, COLON, SCREENING (04/22/2016) Jose Staley DO GI PROCEDURE ORDERABLE S Final Result [facility] from Last 3 Months or Most Recently Relevant to Health Maintenance Insurance [facility] [id number] [facility] Address: [facility] [address] [place] [address] Care Teams Plastics Fitter Relationship Specialty [place] [address] [address] [facility] [address] [place] [address] PCP - General Internal Medicine 04/06/16
--- OUTSIDE RECORDS SUMMARY | 2025-02-05 17:18 | XMS_ITS | Encounter Summary ---
Author Organization [facility] Address [address] [place] [address] Care Team Providers Care Enterprise Security Architect Name Role Phone Doug George DO Primary Care Provider + Encounter Details Date Type Department Care Team (Late st Contact Info) Description 03/09/2022 Astrum Solart Message Enc [facility] Medical Group Family & Internal Medicine [facility] [address] [place] [address] Doug George DO [address] [place] [address] Muscle pain Social History Tobacco Use Types Packs/Day Years Used Date Smoking Tobacco: Passive Smo ke Exposure - Never Smoker Cigarettes Smokeless Tobacco: Never Alcohol Use Standard Drinks/Week Comments Yes 0 (1 standard drink = 0.6 oz pur e alcohol) social// 1 x week AUDIT-C Answer Date Recorded Frequency of [...] Sex Assigned at Female 09/24/2024 9:55 AM GROUNDS RESTORATION SPECIALIST Legal Sex Female 1:49 PM GROUNDS RESTORATION SPECIALIST Gender Identity Female 09/24/2024 9:55 AM GROUNDS RESTORATION SPECIALIST Sexual Orientation Not on file 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 No / Unsure 02/23/2022 2:33 PM CDT documented as of this encounter Progress Notes * Doug George DO - 03/10/2022 1:15 PM CDT Just monitor for now and let us know if symptoms return. documented in this encounter Plan of Treatment Upcoming Encounters Date Type Department Care Team (Late st Contact Info) Description 04/24/2025 9:00 AM CDT Office Visit [facility] Medical Group Family & Internal Medicine [address] [phone] Doug eGorge DO [address] [place] [address] documented as of this encounter Visit Diagnoses Not on filedocumented in this encounter Additional Health Concerns Assessment Noted Time PHQ-9 Depression Total Score: 0 10/28/19 22 2:56 PM GROUNDS RESTORATION SPECIALIST documented as of this encounter Care Teams Enterprise Security Architect Relationship Specialty Start Date End Date Doug George DO [address] [place] [address] PCP - General FAMILY PRACTICE 09/06/18 documented as of this encounter
--- OUTSIDE RECORDS SUMMARY | 2025-02-05 17:18 | XMS_ITS | Encounter Summary ---
Author Organization [facility] Address [address] [place] [address] Care Team Providers Care Service Person Name Role Phone Doug George DO Primary Care Provider + Encounter Details Date Type Department Care Team (Late st Contact Info) Description 10/30/[address] [facility] Family & Internal Medicine [facility] [address] [place] [address] Doug George DO [address] [place] [address] Billing Social History Tobacco Use Types Packs/Day Years [...] Date Recorded Patient Health Questionnaire-2 Score 0 06/25/2024 Education Answer Date Recorded What is the highest level of school you have completed or the highest degree you have received? 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 L SPAR OPERATOR documented in this encounter Plan of Treatment Upcoming Encounters Date Type Department Care Team (Late st Contact Info) Description 04/24/2025 9:00 AM CDT Office Visit [facility] Family & Internal Medicine - [address] [address] Doug George DO [address] [place] [address] documented as of this encounter Visit Diagnoses Not on filedocumented in this encounter Additional Health Concerns Assessment Noted Time PHQ-9 Depression Total Score: 0 10/28/19 22 2:56 PM STEEL SPAR OPERATOR documented as of this encounter Care Teams Service Person Relationship Specialty Start Date End Date Doug George DO [address] [place] [address] PCP - General FAMILY PRACTICE 09/06/18 documented as of this encounter
== END 2025-02-05 15:03 | disposition home or self-care (01) ==
PROVIDERS: PCP Student in an Organized Health Care Education/Training Program; Visit Provider Nurse Practitioner
DX: M85.89 Other specified disorders of bone density and structure, multiple sites (principal); Z78.0 Asymptomatic menopausal state
CPT/HCPCS: 77080